=== PATIENT | male | born 1970 | race African-American/Black ===

== ENCOUNTER 2020-08-13 10:07 | Emergency (ER) | payer MEDICAID ==
[~2020-08-13] VITALS: Ht 195.6 cm; Wt 149.2 kg
[~2020-08-13 10:07] MED LIST: ASPIRIN; LISIPOW; METOPROLOL
[2020-08-13] MEDS ORDERED: cloNIDine HCL 0.1 MG TAB PO ONE (10:15)
[2020-08-13] MEDS ORDERED: KETOROLAC TROMETH 60MG/2ML VIAL IM ONE (11:15)
[2020-08-13 11:49] VITALS: BP 143/74
== END 2020-08-13 11:51 | disposition home or self-care (01) ==
LOC: ER 10:07
DX: M10.9 Gout, unspecified (principal); I10 Essential (primary) hypertension; E11.9 Type 2 diabetes mellitus without complications; Z79.899 Other long term (current) drug therapy; Z79.82 Long term (current) use of aspirin
CPT/HCPCS: 96372; 99283; J1885

== ENCOUNTER 2021-05-08 03:04 | Emergency (ER) | payer MEDICAID ==
[~2021-05-08] VITALS: Ht 195.6 cm; Wt 136.1 kg
[2021-05-08] MEDS ORDERED: KETOROLAC TROMETH 60MG/2ML VIAL IM ONE (03:45)
[2021-05-08 04:17] VITALS: BP 154/96
== END 2021-05-08 04:20 | disposition home or self-care (01) ==
LOC: ER 03:04
DX: M79.672 Pain in left foot (principal); I10 Essential (primary) hypertension; E11.9 Type 2 diabetes mellitus without complications; M10.9 Gout, unspecified; Z79.82 Long term (current) use of aspirin; Z79.899 Other long term (current) drug therapy
CPT/HCPCS: 96372; 99283; J1885

== ENCOUNTER 2021-12-26 11:47 | Emergency (ER) | payer MEDICAID ==
[~2021-12-26] VITALS: Ht 195.6 cm; Wt 136.5 kg
[2021-12-26 13:50] LABS: Basophils # (auto) 0.1 10 ^3/uL (0-0.2); Basophils % (auto) 1.2 % (0.0-2.0); Eosinophils # (auto) 0.3 10 ^3/uL (0-0.8); Eosinophils % (auto) 2.4 % (0.0-7.0); Hemoglobin 14.5 g/dL (13.5-17.5); Lymphocytes % (auto) 37.9 % (10.0-50.0); Mean Corpuscular Hemoglobin 30.3 pg (28.0-32.0); Mean Corpuscular Hgb Conc. 33.7 g/dL (32.0-36.0); Mean Corpuscular Volume 89.8 fL (80.0-100.0); Monocytes # (auto) 0.7 10 ^3/uL (0-1.3); Monocytes % (auto) 6.6 % (0.0-12.0); Neutrophils # (auto) 5.5 10 ^3/uL (1.6-8.6); Neutrophils % (auto) 51.9 % (37.0-80.0); Nucleated Red Blood Cells % 0.1 %; Red Blood Cells 4.79 10^6/uL (4.5-5.90); Red Cell Distribution Width 13.9 % (11.8-14.3); White Blood Cell 10.5 10^3/uL (4.4-10.8)
[2021-12-26 14:15] LABS: Albumin 3.7 g/dL (3.4-5.0); BUN/Creatinine Ratio 13.2; Bilirubin, Total 0.6 mg/dL (0.2-1.0); Calcium 8.8 mg/dL (8.5-10.1); Potassium 3.9 mmol/L (3.5-5.1); Total Protein 7.8 g/dL (6.4-8.2)
[2021-12-26 15:11] LABS: Urine Bacteria NONE SEEN /hpf (None Seen); Urine Blood 2+ /uL (Negative); Urine Specific Gravity 1.031 (1.001-1.035); Urine WBC 1 /hpf (0 - 3)
[2021-12-26] MEDS ORDERED: TAMSULOSIN HYDROCHLORIDE 0.4 MG CAP PO ONE (18:15)
[2021-12-26] MEDS ORDERED: KETOROLAC TROMETH 30 MG/ML 1ML VIAL IV ONE (18:15)
[2021-12-26] MEDS ORDERED: METOCLOPRAMIDE HCL 5MG/ml INJ 2ml VIAL IV ONE (18:15)
[2021-12-26] MEDS ORDERED: SODIUM CHLORIDE 0.9% 1,000 ML IV ONE (18:15)
[2021-12-26 20:50] VITALS: BP 175/86
== END 2021-12-26 20:53 | disposition home or self-care (01) ==
LOC: ER 11:47
DX: R10.31 Right lower quadrant pain (principal); E11.9 Type 2 diabetes mellitus without complications; I10 Essential (primary) hypertension
CPT/HCPCS: 36415; 74176; 80053; 81001; 85025; 96361; 96374; 96375; 99284; J1885; J2765

== ENCOUNTER 2022-05-24 07:49 | Emergency (ER) | payer MEDICAID ==
[~2022-05-24] VITALS: Ht 195.6 cm; Wt 138.6 kg
[2022-05-24 09:12] VITALS: BP 184/112
[2022-05-24] MEDS ORDERED: KETOROLAC TROMETH 30 MG/ML 1ML VIAL IM ONE (09:30)
[2022-05-24] MEDS ORDERED: COLCHICINE 0.6 MG CAP PO ONE (09:30)
[2022-05-24] MEDS ORDERED: NAP500T PO ×2 (09:35)
[2022-05-24] MEDS ORDERED: COLC1TAB3 PO (09:35)
[2022-05-24] MEDS ORDERED: INDO50CA82 PO (10:08)
== END 2022-05-24 10:06 | disposition home or self-care (01) ==
LOC: ER 07:49
DX: M10.9 Gout, unspecified (principal); E11.9 Type 2 diabetes mellitus without complications; I10 Essential (primary) hypertension
CPT/HCPCS: 36415; 84550; 96372; 99283; J1885